=== PATIENT | female | born 1950 | race Caucasian/White ===

== ENCOUNTER 2016-12-04 06:36 | Day surgery (SDC) | payer MEDICARE, BC ==
[~2016-12-04] VITALS: Ht 162.6 cm; Wt 69.9 kg
[~2016-12-04 06:36] MED LIST: ACYCLOVIR800 MG PO; AMOXICILLIN500 MG OR; AMOXICILLIN500 MG PO; AUGMENTIN875TAB OR; CITALOPRAM40 MG PO; CLINDAMYCIN150 MG PO; CLINDAMYCIN300 MG PO; DONEPEZIL5 MG PO; FLEXERIL5 M1 PO; IBUPROFEN600 MG PO; LORTAB 10 PO; MOTRIN800 MG/TAB PO; NAMENDA10 M1 PO; NAPROSYN500 MG PO; OMEPRAZOLE20 MG PO; PROPRANOLOL HCL40 MG PO; ROCEPHIN 1 GM1 GM IM; VICODIN1 TAB PO; ZPAK PO
[2016-12-04 08:19] VITALS: BP 104/57
== END 2016-12-04 08:38 | disposition home or self-care (01) ==
LOC: ENDO 06:36 → ORM 07:30 → ENDO 08:00
PROVIDERS: ATTEND Internal Medicine Gastroenterology
PROC: 0DB48ZX Excision of Esophagogastric Junction, Via Natural or Artificial Opening Endoscopic, Diagnostic (ICD-10-PCS; principal; 2016-12-04)
DX: K22.70 Barrett's esophagus without dysplasia (principal); K29.70 Gastritis, unspecified, without bleeding; K44.9 Diaphragmatic hernia without obstruction or gangrene; K21.0 Gastro-esophageal reflux disease with esophagitis; Z86.010 Personal history of colon polyps; Z87.11 Personal history of peptic ulcer disease

== ENCOUNTER 2017-09-28 14:55 | Emergency (ER) | payer MEDICARE, BC ==
[~2017-09-28] VITALS: Ht 162.6 cm; Wt 70.0 kg
[2017-09-28] MEDS ORDERED: REGLAN10 MG PO (16:47)
[2017-09-28] MEDS ORDERED: LORTAB 5/3255 MG PO (16:47)
[2017-09-28 16:57] VITALS: BP 140/76
== END 2017-09-28 17:09 | disposition home or self-care (01) ==
LOC: ED 14:55
PROC: 2W3BXYZ Immobilization of Left Upper Arm using Other Device (ICD-10-PCS; principal; 2017-09-28)
DX: S42.212A Unspecified displaced fracture of surgical neck of left humerus, initial encounter for closed fracture (principal); W01.198A Fall on same level from slipping, tripping and stumbling with subsequent striking against other object, initial encounter; Y93.89 Activity, other specified; Y92.512 Supermarket, store or market as the place of occurrence of the external cause

== ENCOUNTER 2018-01-21 08:35 | Day surgery (SDC) | payer MEDICARE, BC ==
[~2018-01-21] VITALS: Ht 162.6 cm; Wt 64.9 kg
[~2018-01-21 08:35] MED LIST changes: +AF-MIGRAIN1 PO; +LORTAB 5/3255 MG PO; +REGLAN10 MG PO
[2018-01-21 11:53] VITALS: BP 144/72
== END 2018-01-21 12:05 | disposition home or self-care (01) ==
LOC: ENDO 08:35 → ORM 09:15 → ENDO 09:15
PROVIDERS: ATTEND Internal Medicine Gastroenterology
PROC: 0DB98ZX Excision of Duodenum, Via Natural or Artificial Opening Endoscopic, Diagnostic (ICD-10-PCS; principal; 2018-01-21)
PROC: 0DB48ZX Excision of Esophagogastric Junction, Via Natural or Artificial Opening Endoscopic, Diagnostic (ICD-10-PCS; 2018-01-21)
DX: K22.70 Barrett's esophagus without dysplasia (principal); K29.70 Gastritis, unspecified, without bleeding; K25.9 Gastric ulcer, unspecified as acute or chronic, without hemorrhage or perforation; K44.9 Diaphragmatic hernia without obstruction or gangrene; Z86.010 Personal history of colon polyps

== ENCOUNTER 2019-02-02 13:49 | Emergency (ER) | payer MEDICARE, BC ==
[~2019-02-02] VITALS: Ht 162.6 cm; Wt 68.0 kg
[2019-02-02 14:41] LABS: HEMATOCRIT 37.1 % (37.0-47.0); HEMOGLOBIN 11.9 g/dl (12.0-16.0); IMMATURE GRANULOCYTES 0.2 % (0.0-5.0); MEAN CELL VOLUME 85.7 fL CALC (80.0-100.0); MEAN CORPUSCULAR HGB 27.5 pG CALC (26.0-32.0); MEAN CORPUSCULAR HGB CONC 32.1 g/L CALC (32.0-36.0); NEUT# 5.39 thou/uL (2.00-7.15); RED BLOOD COUNT 4.33 mill/uL (4.20-5.60); RED CELL DISTRI WIDTH 17.2 % (11.5-15.5)
[2019-02-02 15:03] LABS: BUN 11 mg/dL (8-23); BUN/CREATININE RATIO 13 (12-20 (CALC)); CHLORIDE 108 mmol/l (95-108); CREATININE 0.9 mg/dL (0.5-1.0); GFR > 60 ML/MIN (>=60 (CALC)); GFR FOR AFR.AMER. > 60 ML/MIN (>=60 (CALC)); POTASSIUM 3.6 mmol/l (3.5-5.1); SODIUM 138 mmol/l (137-146)
[2019-02-02 15:07] LABS: ANION GAP 13 (6-22 (CALC)); CARBON DIOXIDE 21 mmol/l (22-30)
[2019-02-02 16:39] VITALS: BP 136/74
== END 2019-02-02 16:52 | disposition left against medical advice (07) ==
LOC: ED 13:49 → ED-I 14:36 → ED 15:31 → MS2 15:32
PROVIDERS: Family Medicine
DX: R07.9 Chest pain, unspecified (principal)

== ENCOUNTER 2024-04-24 16:50 | Emergency (ER) | payer MEDICARE, BC ==
[~2024-04-24] VITALS: Ht 162.6 cm; Wt 61.0 kg
[2024-04-24] VITALS (15 sets, daily range): BP systolic 86–138; BP diastolic 43–101
[2024-04-24] MEDS ORDERED: ONDANSETRON HCl 4 MG/2 ML SDV IV ONE (16:55)
[2024-04-24] MEDS ORDERED: MORPHINE SULFATE 4 MG/ML VIAL IV ONE ×2 (16:55→18:00)
[2024-04-24] MEDS ORDERED: INDERAL 40MG TA40 MG PO (17:06)
[2024-04-24] MEDS ORDERED: ATORVASTATIN CA10 MG PO (17:06)
[2024-04-24] MEDS ORDERED: VALPROIC ACD250 M1 PO (17:07)
[2024-04-24] MEDS ORDERED: VITAMIN B-121000 MCG PO (17:08)
[2024-04-24] MEDS ORDERED: HYDROXYZ HCL25 MG PO (17:08)
[2024-04-24] MEDS ORDERED: VITAMIN C500 M1 PO (17:08)
[2024-04-24] MEDS ORDERED: MULTI VIT PO (17:09)
[2024-04-24 17:48] LABS: BASO% 0.4 % (0-3); EOS% 0.7 % (0-8); HEMATOCRIT 35.4 % (37.0-47.0); HEMOGLOBIN 11.6 g/dl (12.0-16.0); IMMATURE GRANULOCYTES 0.4 % (0.0-5.0); LYMPH% 23.9 % (15-41); MEAN CELL VOLUME 91.2 fL CALC (80.0-100.0); MEAN CORPUSCULAR HGB 29.9 pG CALC (26.0-32.0); MEAN CORPUSCULAR HGB CONC 32.8 g/dL CAL (32.0-36.0); MONO% 6.6 % (2-13); NEUT# 7.77 thou/uL (2.00-7.15); RED BLOOD COUNT 3.88 mill/uL (4.20-5.60)
[2024-04-24 18:00] LABS: ALBUMIN 3.8 g/dL (3.2-5.0); BILIRUBIN, TOTAL 0.7 mg/dL (0.02-1.3); CREATININE 1.5 mg/dL (0.5-1.0); POTASSIUM 3.9 mmol/l (3.5-5.1); TOTAL PROTEIN 6.4 g/dL (6.3-8.2)
[2024-04-24] MEDS ORDERED: SODIUM CHLORIDE 0.9% 1,000 ML IV ONE (18:00)
== END 2024-04-24 20:13 ==
LOC: ED 16:50
PROVIDERS: Nurse Practitioner
DX: S72.142A Displaced intertrochanteric fracture of left femur, initial encounter for closed fracture (principal); R55 Syncope and collapse; I10 Essential (primary) hypertension; E78.5 Hyperlipidemia, unspecified; F41.9 Anxiety disorder, unspecified; G30.9 Alzheimer's disease, unspecified; F02.80 Dementia in other diseases classified elsewhere, unspecified severity, without behavioral disturbance, psychotic disturbance, mood disturbance, and anxiety; W18.30XA Fall on same level, unspecified, initial encounter; Y92.009 Unspecified place in unspecified non-institutional (private) residence as the place of occurrence of the external cause
CPT/HCPCS: J2405